=== PATIENT | female | born 1960 ===

== ENCOUNTER 2019-02-01 13:19 | Emergency (ER) | payer OTHER ==
[~2019-02-01] VITALS: Ht 172.7 cm; Wt 59.0 kg
[2019-02-01] MEDS ORDERED: Prednisone20 MG PO (14:25)
[2019-02-01] MEDS ORDERED: ALBU90OI INH (14:25)
[2019-02-01] MEDS ORDERED: Zithromax250 MG PO (14:25)
[2019-02-01] MEDS ORDERED: Cheratussin AC118 ML PO (14:25)
== END 2019-02-01 14:31 | disposition home or self-care (01) ==
LOC: ER 13:19
DX: J44.9 Chronic obstructive pulmonary disease, unspecified (principal); F17.200 Nicotine dependence, unspecified, uncomplicated
CPT/HCPCS: 71046; 94640; 99283-25; J7512